=== PATIENT | female | born 1980 | race Caucasian/White ===

== ENCOUNTER 2018-11-16 15:17 | Outpatient (CLI) | END 2018-11-16 15:27 | disposition short-term general hospital (02) | LOC: AMBL 15:17 | PROVIDERS: ATTEND Internal Medicine | DX: R51 Headache (principal); M54.2 Cervicalgia; S00.83XA Contusion of other part of head, initial encounter; V44.6XXA Car passenger injured in collision with heavy transport vehicle or bus in traffic accident, initial encounter ==